=== PATIENT | male | born 1980 | race Caucasian/White ===

== ENCOUNTER 2025-06-24 01:12 | Emergency (ER) | payer OTHER ==
[~2025-06-24] VITALS: Ht 167.6 cm; Wt 104.3 kg
[2025-06-24 01:45] VITALS: BP 131/87; TEMP 98.5; O2SAT 95
== END 2025-06-24 04:55 | disposition left against medical advice (07) ==
LOC: ER 01:12
DX: R06.02 Shortness of breath (principal)
CPT/HCPCS: 71045-TC